=== PATIENT | male | born 1955 | race Caucasian/White ===

== ENCOUNTER 2021-08-07 16:09 | Inpatient (IN) | payer MEDICARE, SELFPAY ==
--- NOTE | ~2021-08-07 | CT_ITS ---
EXAMINATION: CT abdomen pelvis w con DATE: 08/07/2021 17:54 INDICATION: Constipation. Abdominal pain. TECHNIQUE: Computed tomography (CT) of the abdomen and pelvis was performed with 100 mL Omnipaque 350 intravenous contrast. Automated exposure control and iterative reconstruction technique were employe d. The dose-length product was 279.07 mGy-cm. COMPARISON: None. FINDINGS: The visualized portions of the lung bases demonstrates mild atelectasis. No pleural effusio n. The heart size is normal. No pericardial effusion. There are cysts in the liver measuring up to 10 mm. A calcification in the spleen is consistent with old granulomatous disease. There are a few low- attenuation lesions in the spleen measuring up to 6 mm, likely granulomatous disease. The gallbladder , pancreas, and adrenal glands are normal. There is a 3.4 x 2.8 cm mass with speckled calcifications in the left para-aortic region. There is a are cysts in right kidney measuring up to 2.3 cm. The larg est of the cysts has focal rim calcification. Left kidney is normal. There are scattered diverticula in the colon. There is a 3.1 x 2.6 x 3.0 cm intramural abscess in the sigmoid colon with local bowel wall thickening, likely diverticulitis. There are no dilated loops of bowel. The appendix is not visu alized. There are no pathologically enlarged lymph nodes. There is no free intraperitoneal fluid. The re is lumbar levoscoliosis and severe spondylosis. There are chronic bilateral L5 pars defects. There is 5 mm anterolisthesis of L5 on S1. There is mild chronic anterior wedging of T12 and L1 vertebral bodies. IMPRESSION: 1. Sigmoid diverticulitis with 3.1 x 2.6 x 3.0 cm intramural abscess. 2. 3.4 x 2.8 cm mass with calcifications in the left para-aortic region. The differential diagnosis i ncludes sarcoma, neurogenic tumor, gastrointestinal stromal tumor, and teratoma. Reviewed, dictated and finalized at location A. [employer] IMPRESSION: 1. Sigmoid diverticulitis with 3.1 x 2.6 x 3.0 cm intramural abscess. 2. 3.4 x 2.8 cm mass with calcifications in the left para-aortic region. The di fferential diagnosis includes sarcoma, neurogenic tumor, gastrointestinal malou al tumor, and teratoma.
[2021-08-07 16:27] VITALS: BP 147/84; PULSE 83; RESP 16; TEMP 36.6; O2SAT 100
[2021-08-07 16:57] LABS: Basophils Absolute Auto 0.05 K/mm3 (0.00-0.10); Basophils Percent Auto 0.3 % (0.0-1.0); Hemoglobin 13.1 g/dL (12.4-15.3); Immature Granulocyte Absolute 0.08 K/mm3 (0.00-0.00); Immature Granulocyte Percent A 0.5 % (0.0-0.0); Lymphocytes Absolute Auto 2.34 K/mm3 (1.10-4.50); Lymphocytes Percent Auto 14.7 % (18.0-42.0); Mean Corpuscular HGB Conc 34.5 g/dL (32.0-36.0); Mean Corpuscular Volume 92.7 fL (78.0-102.0); Mean Platelet Volume 9.5 fl (8.7-11.0); Monocytes Absolute Auto 1.33 K/mm3 (0.10-0.90); Monocytes Percent Auto 8.4 % (2.0-11.0); Neutrophils Absolute Auto 12.1 K/mm3 (1.7-7.2); Neutrophils Percent Auto 76.1 % (50.0-70.0); Platelet Count Result 423 K/mm3 (150-420); White Blood Count 15.9 K/mm3 (4.8-10.8)
[2021-08-07 17:08] LABS: Add Urine Microscopic? YES; Appearance Urine Clear (Clear); Bilirubin Urine 1+ (Negative); Blood Urine Negative (Negative); Color Urine Yellow (Yellow); Glucose Urine UA Negative (Negative); Ketones Urine 1+ (Negative); Leukocyte Esterase Ur Negative (Negative); Nitrate Urine Negative (Negative); Protein Urine 1+ (Negative); Urobilinogen Urine 0.2 mg/dL (0.2-1.0); pH Urine 8.5 (5.0-8.0)
[2021-08-07 17:15] LABS: Bacteria Urine Trace /hpf; Mucus Urine Moderate /lpf; RBC Urine None seen /hpf (0-2); Squamous Epithelial Cell Urine Rare /hpf (Few); WBC Urine None seen /hpf (0-3)
[2021-08-07 17:24] LABS: Alanine Aminotransferase 21 U/L (16-63); Albumin Level 3.1 g/dL (3.4-5.0); Alkaline Phosphatase 59 U/L (46-116); Anion Gap 15 mmol/L (8-16); Aspartate Amino Transferase < 10 U/L (15-37); Bilirubin,Total 0.5 mg/dL (0.00-1.00); Blood Urea Nitrogen 10 mg/dL (7-18); Calcium 9.3 mg/dL (8.5-10.1); Carbon Dioxide 23 mmol/L (21-32); Chloride 97 mmol/L (98-108); Estimated CRCL calculation 54 ml/min; Estimated Glomerular Filt Rate > 60; Glucose 145 mg/dL (70-99); Osmolality Calculated 282 mOsm/kg (285-295); Potassium 3.8 mmol/L (3.5-5.1); Sodium 135 mmol/L (136-145); Thyroid Stimulating Hormone 1.43 uIU/mL (0.36-3.74); Total Protein 7.4 g/dL (6.4-8.2)
[2021-08-07 17:35] VITALS: BP 129/76; PULSE 72; RESP 18; O2SAT 100
[2021-08-07 17:47] LABS: Lactic Acid Reflex 1.2 mmol/L (0.4-2.0)
--- NOTE | 2021-08-07 18:19 | ED.ABDPAIN ---
HPI - Abdominal Pain General Chief Complaint: Abdominal Pain Stated Complaint: blockage in bowel Source: patient Mode of arrival: ambulatory Limitations: no limitations History of Present Illness HPI narrative: this is a 65-year-old gentleman that presents with abdominal pain mainly localized to the periumbilical area has felt like needs to have a bowel movement but did have a small bowel movement earlier today currently there is no fever or chills had nausea earlier currently there is no nausea vomiting, he rates his pain at about a 6/10. Currently there is no flank pain no dysuria no hematuria no chest pain no shortness of breath. MD elicited complaint: abdominal pain Pertinent past history: constipation and diverticulitis Onset (ago): day(s) Pain Consistency: constant Location: periumbilical Severity: moderate Pain scale (0-10): 6 Quality: aching Radiation: none Migration to: periumbilical Exacerbating factors: eating and bowel movement Related Data Home Medications Medication Instructions Recorded Confirmed tramadol [Ultram] 50 mg PO PRN 08/07/21 08/07/21 Allergies Allergy/AdvReac Type Severity Reaction Status Date / Time No Known Allergies Allergy Verified 08/07/21 16:25 Review of Systems Review of Systems: All systems reviewed & are unremarkable except as noted in HPI and below [facility] Past Medical History Medical History Diverticulitis Exam Const: General: no acute distress and alert Orientation/consciousness: patient oriented x3 HENMT: Head: normal to inspection Eyes: Conjunctivae: conjunctivae normal Pupils: Equal, round and reactive pupils present Direct Ophthalmoscopy: no photophobia Neck: Neck: normal visual inspection, no lymphadenopathy and no meningeal signs Chest: Chest palpation & inspection: normal inspection of the chest Resp: Effort & Inspection: normal respiratory effort Auscultation: clear to auscultation bilaterally Cardio: Rate: regular rate Rhythm: regular rhythm GI: GI Palp: Yes Soft to palpation and Yes Tenderness to palpation present (GI) Urinary Catheter: Urinary Catheter: patent and draining Skin: General skin exam: normal color Rashes: no rashes Neuro: General: patient oriented x3 and moves all extremities Extrem: General: normal to inspection Psych: Mental Status: mental status grossly normal Affect: normal affect Course Course Emergency Course: labs and CT scan reviewed with patient CT scan shows that he has a periaortic mass that the patient is aware of, but also is having diverticulitis with some abscess formation and will start IV fluids upon admission along with IV antibiotics. Vital Signs Vital signs: Vital Signs Temperature 36.6 C 08/07/21 16:27 Pulse Rate 83 08/07/21 16:27 Respiratory Rate 16 08/07/21 16:27 Blood Pressure 147/84 H 08/07/21 16:27 Pulse Oximetry 100 08/07/21 16:27 Temperature 36.6 C 08/07/21 16:27 Pulse Rate 72 08/07/21 17:35 Respiratory Rate 18 08/07/21 17:35 Blood Pressure 129/76 08/07/21 17:35 Pulse Oximetry 100 08/07/21 17:35 MDM - Abdominal Pain Lab Data Result diagrams: 08/07/21 16:50 08/07/21 16:50 Labs: Lab Results 08/07/21 08/07/21 08/07/21 Range/Units 16:50 16:50 17:05 WBC 15.9 H (4.8-10.8) K/mm3 RBC 4.10 L (4.70-6.10) M/mm3 Hgb 13.1 (12.4-15.3) g/dL Hct 38.0 (37.0-46.0) % MCV 92.7 (78.0-102.0) fL MCH 32.0 H (27.0-31.0) pg MCHC 34.5 (32.0-36.0) g/dL RDW 12.0 (11.6-14.4) % Plt Count 423 H (150-420) K/mm3 MPV 9.5 (8.7-11.0) fl Immature Gran % (Auto) 0.5 H (0.0-0.0) % Neut % (Auto) 76.1 H (50.0-70.0) % Lymph % (Auto) 14.7 L (18.0-42.0) % [place] % (Auto) 8.4 (2.0-11.0) % Eos % (Auto) 0.0 L (1.0-6.0) % Baso % (Auto) 0.3 (0.0-1.0) % Lymph # (Auto) 2.34 (1.10-4.50) K/mm3 [place] # (Auto) 1.33 H (0.10
[2021-08-07 18:37] VITALS: BP 133/70; PULSE 80; RESP 18; TEMP 37.2; O2SAT 99
[2021-08-07 19:19] VITALS: BMI 19.4
[2021-08-07 20:00] VITALS: BP 156/88; PULSE 83; RESP 16; TEMP 37.9; O2SAT 98
[2021-08-07] MEDS: SODIUM CHLORIDE 0.9% IV 1,000 ML 100 ML IV CONT (20:06)
[2021-08-07] MEDS: CIPROFLOXACIN 400 MG/D5W 200ML 200 ML 200 MG IVPB (20:06)
--- NOTE | 2021-08-07 20:57 | ADMGEN ---
This patient, Sheldon Traore, was admitted to 2nd Floor Room 227-2. Patient for diverticulitis. Patient oriented to hospital policies and general routines including ID bracelet, bed and alarms, visiting hours, pain management, procedures, bathroom and other care routines, personal items, smoking policy, room service/diet, and visiting hours. Information on how to activate the Rapid Response Team has been discussed. Patient/Family are encouraged to report perceived risks to care and to ask questions if they do not understand what they are told or what they should do.
[2021-08-07] MEDS: DOCUSATE SODIUM 100 MG CAPSULE PO (21:50)
[2021-08-07] MEDS: metroNIDAZOLE 500 MG/ISO 100ML 500 MG/100 ML BAG 100 MG IVPB (21:50)
[2021-08-08] VITALS (8 sets, daily range): BP systolic 143–156; BP diastolic 73–90; PULSE 67–88; RESP 16–20; TEMP 36.5–37.4; O2SAT 95–100
--- NOTE | 2021-08-08 02:20 | PC.NURSE ---
Completed patient rounding. Patient is sleeping comfortably in bed, with no signs of pain or discomfort.
[2021-08-08 05:29] LABS: Basophils Absolute Auto 0.06 K/mm3 (0.00-0.10); Basophils Percent Auto 0.4 % (0.0-1.0); Eosinophils Absolute Auto 0.02 K/mm3 (0.02-0.50); Eosinophils Percent Auto 0.1 % (1.0-6.0); Hemoglobin 12.8 g/dL (12.4-15.3); Immature Granulocyte Absolute 0.07 K/mm3 (0.00-0.00); Immature Granulocyte Percent A 0.5 % (0.0-0.0); Lymphocytes Absolute Auto 1.81 K/mm3 (1.10-4.50); Lymphocytes Percent Auto 11.8 % (18.0-42.0); Mean Corpuscular HGB Conc 33.7 g/dL (32.0-36.0); Mean Corpuscular Hemoglobin 31.7 pg (27.0-31.0); Mean Corpuscular Volume 94.1 fL (78.0-102.0); Mean Platelet Volume 9.8 fl (8.7-11.0); Monocytes Absolute Auto 1.41 K/mm3 (0.10-0.90); Monocytes Percent Auto 9.2 % (2.0-11.0); Neutrophils Absolute Auto 11.9 K/mm3 (1.7-7.2); Platelet Count Result 424 K/mm3 (150-420); Red Blood Count 4.04 M/mm3 (4.70-6.10); White Blood Count 15.3 K/mm3 (4.8-10.8)
[2021-08-08 05:44] LABS: Alanine Aminotransferase 21 U/L (16-63); Alkaline Phosphatase 59 U/L (46-116); Anion Gap 13 mmol/L (8-16); Aspartate Amino Transferase < 10 U/L (15-37); Bilirubin,Total 0.4 mg/dL (0.00-1.00); Blood Urea Nitrogen 10 mg/dL (7-18); Calcium 8.6 mg/dL (8.5-10.1); Carbon Dioxide 26 mmol/L (21-32); Chloride 100 mmol/L (98-108); Estimated CRCL calculation 72 ml/min; Estimated Glomerular Filt Rate > 60; Glucose 108 mg/dL (70-99); Osmolality Calculated 288 mOsm/kg (285-295); Potassium 4.4 mmol/L (3.5-5.1); Sodium 139 mmol/L (136-145); Total Protein 6.8 g/dL (6.4-8.2)
[2021-08-08] MEDS: metroNIDAZOLE 500 MG/ISO 100ML 500 MG/100 ML BAG 100 MG IVPB (06:18)
[2021-08-08] MEDS: SODIUM CHLORIDE 0.9% IV 1,000 ML 100 ML IV CONT ×2 (08:48→21:24)
[2021-08-08] MEDS: CIPROFLOXACIN 400 MG/D5W 200ML 200 ML 200 MG IVPB (08:48)
[2021-08-08] MEDS: ENOXAPARIN 40 MG/0.4 ML SYRINGE SUB-Q (08:53)
[2021-08-08] MEDS: DOCUSATE SODIUM 100 MG CAPSULE PO ×2 (08:53→20:59)
--- NOTE | 2021-08-08 09:49 | PM.IMHP ---
H&P: HPI History of Present Illness Date/Time: 08/08/21 09:49 this is a 65-year-old male who presented to our emergency department with complaints of abdominal pain to the periumbilical area. Patient denies any past medical history. According to patient a couple days ago he started experiencing abdominal pain. He originally thought that he was constipated and used MiraLAX and Dulcolax at home. Patient notes that he still has not had a BM. Patient notes that he was unable to keep down solid food but was able to keep down liquids. Patient notes that originally his vomit was clear in color and eventually had food particles after eating. Vital signs 150/73, 88, 18, 0.3, 100% on room air, WBCs 15.3 hemoglobin 12.8, hematocrit 38.0 platelets 424, sodium 135, potassium 3.8, BUN 18, creatinine 0.93, ALT 45, lactic acid 1.2, AST less than 10, ALT 21, UA with protein ketones bili, CT of the abdomen indicates diverticulitis with a abscess in the left para- aortic region. Call to surgery department for recommendation . It was recommended that the patient be started on Zosyn with IV pain medication and remain n.p.o. with ice chips and monitored closely. If patient condition worsens I was advised to give a call back for further recommendations or possible transfer at this time transfer is not necessary. The patient denies SOB, CP, palpitation, extremity numbness, lightheadedness, dizziness, constipation, diarrhea, chills, or fever. Time spent 60 minutes <MOISES Bryson - Last Filed: 08/08/21 13:23> Chief Complaint: Abdominal pain <MOISES Bryson - Last Filed: 08/08/21 13:23> Review of Systems Review of Systems: A 14 organ system Review of Systems was performed and pertinent positives included in the HPI, otherwise remaining ROS is negative. <MOISES Bryson - Last Filed: 08/08/21 13:23> [facility] Past Medical History Medical History: Medical History Diverticulitis <MOISES Bryson - Last Filed: 08/08/21 13:23> Social History Social History: Social History Years smoked: 45 Smoking status: Current every day smoker Tobacco type: cigarettes Alcohol intake: current Drinks per week: 6 Substance use: former Substance use type: marijuana Spiritual care concerns: No <MOISES Bryson - Last Filed: 08/08/21 13:23> Meds Home Medications and Allergies Home medications: Home Medications Medication Instructions Recorded Confirmed Type tramadol [Ultram] 50 mg PO PRN 08/07/21 08/07/21 History <MOISES Bryson - Last Filed: 08/08/21 13:23> Allergies/Adverse reactions: Allergies Allergy/AdvReac Type Severity Reaction Status Date / Time No Known Allergies Allergy Verified 08/07/21 16:25 <MOISES Bryson - Last Filed: 08/08/21 13:23> Vital Signs Vital Signs - 24 hr 08/07/21 16:27 08/07/21 17:35 08/07/21 18:37 Temperature 98 F 99 F Pulse Rate 83 72 80 Respiratory Rate 16 18 18 Blood Pressure 147/84 H 129/76 133/70 Pulse Oximetry 100 100 99 08/07/21 20:00 08/08/21 00:00 08/08/21 04:00 Temperature 100.2 F H 99.1 F 98.1 F Pulse Rate 83 77 76 Respiratory Rate 16 18 16 Blood Pressure 156/88 H 143/88 H 154/83 H Pulse Oximetry 98 95 97 08/08/21 08:00 Temperature 98.3 F Pulse Rate 88 Respiratory Rate 18 Blood Pressure 150/73 H Pulse Oximetry 100 <MOISES Bryson - Last Filed: 08/08/21 13:23> Exam Narrative: GENERAL: This is a well-nourished, well-developed patient, in no apparent distress. HEAD: normocephalic, atraumatic. EYES: PERRL. Sclera clear/white. Vision is grossly intact. EARS: External ears normal, auditory canals clear and without drainage, TMs normal without perforation. Hearing grossly intact. NOSE: External nose normal with no obvious nasal discharge, nares without redness,
--- NOTE | 2021-08-08 13:51 | PC.NURSE ---
0900 small clear mucus like with flecks of brown dk stool. 1050 sm amt soft formed dk brown green stool
--- NOTE | 2021-08-08 18:59 | PC.NURSE ---
Pt nurse introduction took place. Pt whiteboard updated. Pt stated pain is managed at this time.
--- NOTE | 2021-08-09 02:11 | PC.NURSE ---
Pt rounding completed. Pt is sleeping on his left side with the call light within reach.
[2021-08-09 04:00] VITALS: BP 146/84; PULSE 73; RESP 19; TEMP 36.5; O2SAT 98
[2021-08-09 05:23] LABS: Hematocrit 35.2 % (37.0-46.0); Hemoglobin 11.9 g/dL (12.4-15.3); Mean Corpuscular HGB Conc 33.8 g/dL (32.0-36.0); Mean Corpuscular Hemoglobin 31.7 pg (27.0-31.0); Mean Corpuscular Volume 93.9 fL (78.0-102.0); Platelet Count Result 406 K/mm3 (150-420); Red Blood Count 3.75 M/mm3 (4.70-6.10); Red Cell Distribution Width 11.9 % (11.6-14.4)
[2021-08-09 05:40] LABS: Alanine Aminotransferase 18 U/L (16-63); Albumin Level 2.6 g/dL (3.4-5.0); Alkaline Phosphatase 52 U/L (46-116); Anion Gap 12 mmol/L (8-16); Aspartate Amino Transferase < 10 U/L (15-37); Bilirubin,Total 0.4 mg/dL (0.00-1.00); Blood Urea Nitrogen 7 mg/dL (7-18); Calcium 8.2 mg/dL (8.5-10.1); Carbon Dioxide 23 mmol/L (21-32); Chloride 101 mmol/L (98-108); Estimated CRCL calculation 79 ml/min; Estimated Glomerular Filt Rate > 60; Glucose 93 mg/dL (70-99); Osmolality Calculated 280 mOsm/kg (285-295); Potassium 3.3 mmol/L (3.5-5.1); Sodium 136 mmol/L (136-145); Total Protein 6.6 g/dL (6.4-8.2)
[2021-08-09 05:43] LABS: CRP 14.9 mg/dL (0.0-0.9)
[2021-08-09 08:00] VITALS: BP 145/77; PULSE 63; RESP 20; TEMP 36.6; O2SAT 97
[2021-08-09] MEDS: ENOXAPARIN 40 MG/0.4 ML SYRINGE SUB-Q (08:44)
[2021-08-09] MEDS: DOCUSATE SODIUM 100 MG CAPSULE PO (08:44)
[2021-08-09] MEDS: SODIUM CHLORIDE 0.9% IV 1,000 ML 100 ML IV CONT ×2 (08:44→20:23)
--- NOTE | 2021-08-09 08:52 | WPDPN ---
Progress Note: A&P Assessment and Plan (1) Diverticulitis: Code(s): K57.92 - Diverticulitis of intestine, part unspecified, without perforation or abscess without bleeding Status: Acute Assessment and Plan: Imaging indicates Sigmoid diverticulitis with 3.1 x 2.6 x 3.0 cm intramural abscess. Continue Zosyn with pain medication Advance diet to clear liquid diet WBCs 15>12 CMP in a.m. Lactic acid within normal limits (2) Elevated WBCs: Code(s): D72.829 - Elevated white blood cell count, unspecified Status: Acute Assessment and Plan: Trending down 15>12 Possibly secondary to diverticulitis or intramural abscess Continue Zosyn (3) Nausea and vomiting: Code(s): R11.2 - Nausea with vomiting, unspecified Status: Acute Assessment and Plan: Resolved Continue Zofran Advance diet as tolerated (4) Constipation: Code(s): K59.00 - Constipation, unspecified Status: Acute Assessment and Plan: Resolved (5) Intestinal abscess: Code(s): K63.0 - Abscess of intestine Status: Acute Assessment and Plan: Imaging indicates Sigmoid diverticulitis with 3.1 x 2.6 x 3.0 cm intramural abscess. Started Zosyn with pain medication Remain n.p.o. with ice chips WBCs 15>12 CMP in a.m. Lactic acid within normal limits (6) Mass of aorta: Code(s): I77.89 - Other specified disorders of arteries and arterioles Status: Acute Assessment and Plan: Patient aware monitored by primary care physician Subjective Date/time seen: 08/09/21 08:52 patient notes that his pain has decreased he still continues to have tenderness in his left lower quadrant. He also notes that he is not having bowel movements. Patient was able to tolerate ice chips will advance his diet to clear liquid diet. The patient denies SOB, CP, palpitation, extremity numbness, lightheadedness, dizziness, constipation, diarrhea, chills, or fever. Patient will remain for an additional day and possible discharge tomorrow. Review of Systems Review of Systems: A 14 organ system Review of Systems was performed and pertinent positives included in the HPI, otherwise remaining ROS is negative. Exam Narrative: GENERAL: This is a well-nourished, well-developed patient, in no apparent distress. HEAD: normocephalic, atraumatic. EYES: PERRL. Sclera clear/white. Vision is grossly intact. EARS: External ears normal, auditory canals clear and without drainage, TMs normal without perforation. Hearing grossly intact. NOSE: External nose normal with no obvious nasal discharge, nares without redness, no rhinorrhea. THROAT: Mucous membranes moist, posterior pharynx clear. NECK: Neck supple, non-tender without lymphadenopathy, masses or thyromegaly. CARDIOVASCULAR: Regular rate and rhythm without murmurs, gallops, or rubs. RESPIRATORY: Clear to auscultation. Breath sounds equal bilaterally. No wheezes, rales, or rhonchi. GASTROINTESTINAL: Abdomen soft, tender to the lower right quadrant, nondistended. Bowel sounds hyperactive. No hepato-splenomegaly, or palpable masses. No guarding. SKIN: warm, intact with no suspicious lesions or rash, good texture and turgor. NEURO: awake, alert, and oriented to person, place and time. There were no obvious focal neurologic abnormalities. Steady gait EXTREMITIES: Normal range of motion. No edema. No calf tenderness. Negative Homans sign bilaterally. BACK: Nontender without deformity or crepitance. No flank tenderness. Objective Data Vital Signs Vital Signs: Vital Signs - 24 hr 08/08/21 12:00 08/08/21 13:37 08/08/21 16:00 Temperature 99.4 F 99.4 F 98.5 F Pulse Rate 69 Respiratory Rate 20 Blood Pressure 150/81 H Pulse Oximetry 96 08/08/21 20:00 08/08/21 23:50 08/09/21 04:00 Temperature 98.3 F 97.7 F 97.7 F Pulse Rate 67 76 73 Respiratory Rate 16 18 19 Blood Pressure 156/90 H 152/88 H 146/84 H Pulse Oximetry 95 98 98 Inta
[2021-08-09] MEDS: KCL 20 MEQ/SW 100 ML 100 ML 50 MEQ IVPB (10:24)
[2021-08-09 16:00] VITALS: BP 152/77; PULSE 68; RESP 18; TEMP 36.8; O2SAT 99
[2021-08-09 23:38] VITALS: BP 150/80; PULSE 63; RESP 17; TEMP 36.8; O2SAT 98
--- NOTE | 2021-08-10 01:28 | PC.NURSE ---
Pt is laying on his right side. Education was provided on how the IV equipment worked per pt curiosity. Pt is in pleasant mood and has his call light within reach.
--- NOTE | 2021-08-10 03:23 | PC.NURSE ---
Pt is sleeping on his right side with call light within reach.
[2021-08-10 06:19] LABS: Hematocrit 37.6 % (37.0-46.0); Hemoglobin 12.8 g/dL (12.4-15.3); Mean Corpuscular Hemoglobin 31.8 pg (27.0-31.0); Mean Corpuscular Volume 93.5 fL (78.0-102.0); Mean Platelet Volume 9.5 fl (8.7-11.0); Platelet Count Result 438 K/mm3 (150-420); Red Blood Count 4.02 M/mm3 (4.70-6.10); Red Cell Distribution Width 11.9 % (11.6-14.4); White Blood Count 6.4 K/mm3 (4.8-10.8)
[2021-08-10 06:48] LABS: Alanine Aminotransferase 19 U/L (16-63); Albumin Level 2.6 g/dL (3.4-5.0); Alkaline Phosphatase 46 U/L (46-116); Anion Gap 9 mmol/L (8-16); Aspartate Amino Transferase < 10 U/L (15-37); Bilirubin,Total 0.2 mg/dL (0.00-1.00); Blood Urea Nitrogen 4 mg/dL (7-18); CRP 9.6 mg/dL (0.0-0.9); Calcium 8.7 mg/dL (8.5-10.1); Carbon Dioxide 25 mmol/L (21-32); Chloride 103 mmol/L (98-108); Estimated CRCL calculation 75 ml/min; Estimated Glomerular Filt Rate > 60; Glucose 92 mg/dL (70-99); Osmolality Calculated 280 mOsm/kg (285-295); Potassium 3.5 mmol/L (3.5-5.1); Sodium 137 mmol/L (136-145); Total Protein 6.6 g/dL (6.4-8.2)
[2021-08-10] MEDS: ENOXAPARIN 40 MG/0.4 ML SYRINGE SUB-Q (07:52)
[2021-08-10 08:00] VITALS: BP 146/86; PULSE 61; RESP 17; TEMP 36.6; O2SAT 98
--- NOTE | 2021-08-10 11:10 | P.DS_ITS ---
DS: Admitting Diagnosis Discharge Date 08/10/2021 <Phyllis KaydenMOISES Stewart - Last Filed: 08/10/21 15:35> Admitting Diagnosis Diverticulitis with abscess <MOISES Bryson - Last Filed: 08/10/21 15:35> DS: Discharge Diagnosis Discharge Diagnosis (1) Diverticulitis: Code(s): K57.92 - Diverticulitis of intestine, part unspecified, without perforation or abscess without bleeding <MOISES Bryson - Last Filed: 08/10/21 15:35> Status: Acute <Phyllis KaydenMOISES Stewart - Last Filed: 08/10/21 15:35> Assessment and Plan: * Imaging indicates Sigmoid diverticulitis with 3.1 x 2.6 x 3.0 cm intramural abscess. * Continue Zosyn with pain medication * Advance diet to clear liquid diet * WBCs 15>12>6.4 * Lactic acid within normal limits patient able to tolerate all meals * <MOISES Bryson - Last Filed: 08/10/21 15:35> (2) Elevated WBCs: Code(s): D72.829 - Elevated white blood cell count, unspecified <MOISES Bryson - Last Filed: 08/10/21 15:35> Status: Acute <Phyllis KaydenMOISES Stewart - Last Filed: 08/10/21 15:35> Assessment and Plan: * Trending down 15>12>6.4 * Possibly secondary to diverticulitis or intramural abscess * Home with Augmentin <MOISES Bryson - Last Filed: 08/10/21 15:35> (3) Nausea and vomiting: Code(s): R11.2 - Nausea with vomiting, unspecified <MOISES Bryson - Last Filed: 08/10/21 15:35> Status: Acute <Phyllis KaydenMOISES Stewart - Last Filed: 08/10/21 15:35> Assessment and Plan: * Resolved * Continue Zofran * Able to tolerate meals <MOISES Bryson - Last Filed: 08/10/21 15:35> (4) Constipation: Code(s): K59.00 - Constipation, unspecified <MOISES Bryson - Last Filed: 08/10/21 15:35> Status: Acute <MOISES Bryson - Last Filed: 08/10/21 15:35> Assessment and Plan: * Resolved <MOISES Bryson - Last Filed: 08/10/21 15:35> (5) Intestinal abscess: Code(s): K63.0 - Abscess of intestine <MOISES Bryson - Last Filed: 08/10/21 15:35> Status: Acute <MOISES Bryson - Last Filed: 08/10/21 15:35> Assessment and Plan: * Imaging indicates Sigmoid diverticulitis with 3.1 x 2.6 x 3.0 cm intramural abscess. * Zosyn as inpatient Augmentin outpatient p.o. * Remain n.p.o. with ice chips * WBCs 15>12>6.4 * Lactic acid within normal limits <MOISES Bryson - Last Filed: 08/10/21 15:35> (6) Mass of aorta: Code(s): I77.89 - Other specified disorders of arteries and arterioles <MOISES Bryson - Last Filed: 08/10/21 15:35> Status: Acute <MOISES Bryson - Last Filed: 08/10/21 15:35> Assessment and Plan: * Patient aware monitored by primary care physician <MOISES Bryson - Last Filed: 08/10/21 15:35> DS: Summary Hospital Course Reason for hospitalization: Abdominal pain <Phyllis Mcgee MOISES - Last Filed: 08/10/21 15:35> Hospital Course: this is a 65-year-old male who presented to our emergency department with complaints of abdominal pain to the periumbilical area. Patient denies any past medical history. According to patient a couple days ago he started experiencing abdominal pain. He originally thought that he was constipated and used MiraLAX and Dulcolax at home. . Patient notes that he was unable to keep down solid food but was able to keep down liquids. Patient notes that originally his vomit was clear in color and eventually had fo
--- NOTE | 2021-08-10 11:10 | PM.DS ---
DS: Admitting Diagnosis Discharge Date 08/10/2021 <MOISES Bryson - Last Filed: 08/10/21 15:35> Admitting Diagnosis Diverticulitis with abscess <MOISES Bryson - Last Filed: 08/10/21 15:35> DS: Discharge Diagnosis Discharge Diagnosis (1) Diverticulitis: Code(s): K57.92 - Diverticulitis of intestine, part unspecified, without perforation or abscess without bleeding <MOISES Bryson - Last Filed: 08/10/21 15:35> Status: Acute <MOISES Bryson - Last Filed: 08/10/21 15:35> Assessment and Plan: Imaging indicates Sigmoid diverticulitis with 3.1 x 2.6 x 3.0 cm intramural abscess. Continue Zosyn with pain medication Advance diet to clear liquid diet WBCs 15>12>6.4 Lactic acid within normal limits patient able to tolerate all meals <MOISES Bryson - Last Filed: 08/10/21 15:35> (2) Elevated WBCs: Code(s): D72.829 - Elevated white blood cell count, unspecified <MOISES Bryson - Last Filed: 08/10/21 15:35> Status: Acute <MOISES Bryson - Last Filed: 08/10/21 15:35> Assessment and Plan: Trending down 15>12>6.4 Possibly secondary to diverticulitis or intramural abscess Home with Augmentin <MOISES Bryson - Last Filed: 08/10/21 15:35> (3) Nausea and vomiting: Code(s): R11.2 - Nausea with vomiting, unspecified <MOISES Bryson - Last Filed: 08/10/21 15:35> Status: Acute <MOISES Bryson - Last Filed: 08/10/21 15:35> Assessment and Plan: Resolved Continue Zofran Able to tolerate meals <MOISES Bryson - Last Filed: 08/10/21 15:35> (4) Constipation: Code(s): K59.00 - Constipation, unspecified <MOISES Bryson - Last Filed: 08/10/21 15:35> Status: Acute <MOISES Bryson - Last Filed: 08/10/21 15:35> Assessment and Plan: Resolved <MOISES Bryson - Last Filed: 08/10/21 15:35> (5) Intestinal abscess: Code(s): K63.0 - Abscess of intestine <MOISES Bryson - Last Filed: 08/10/21 15:35> Status: Acute <MOISES Bryson - Last Filed: 08/10/21 15:35> Assessment and Plan: Imaging indicates Sigmoid diverticulitis with 3.1 x 2.6 x 3.0 cm intramural abscess. Zosyn as inpatient Augmentin outpatient p.o. Remain n.p.o. with ice chips WBCs 15>12>6.4 Lactic acid within normal limits <MOISES Bryson - Last Filed: 08/10/21 15:35> (6) Mass of aorta: Code(s): I77.89 - Other specified disorders of arteries and arterioles <MOISES Bryson - Last Filed: 08/10/21 15:35> Status: Acute <MOISES Bryson Last Filed: 08/10/21 15:35> Assessment and Plan: Patient aware monitored by primary care physician <MOISES Bryson - Last Filed: 08/10/21 15:35> DS: Summary Hospital Course Reason for hospitalization: Abdominal pain <MOISES Bryson - Last Filed: 08/10/21 15:35> Hospital Course: this is a 65-year-old male who presented to our emergency department with complaints of abdominal pain to the periumbilical area. Patient denies any past medical history. According to patient a couple days ago he started experiencing abdominal pain. He originally thought that he was constipated and used MiraLAX and Dulcolax at home. . Patient notes that he was unable to keep down solid food but was able to keep down liquids. Patient notes that originally his vomit was clear in color and eventually had food particles after eating. This day of discharge patient was able to tolerate his meals and notes that his abdominal pain has resolved. Patient will discharge with Augmentin and pain medication he was also instructed to be cautious of pain medication because it may cause constipation. The patient denies SOB, CP, palpitation, extremity numbness, li
--- NOTE | 2021-08-10 15:15 | PC.NURSE ---
Discharge instructions reviewed with patient. All questions answered. Pt escorted to front lobby for discharge.
--- NOTE | 2021-08-12 10:42 | PC.NURSE ---
Unable to contact for discharge call back.
== END 2021-08-10 13:50 | disposition home or self-care (01) | DRG 392 ==
LOC: CHSED 18:25 → CHS2ND 18:53
PROVIDERS: Nurse Practitioner; Admitting Provider Emergency Medicine; Emergency Provider Emergency Medicine; PCP Family Medicine; Visit Provider Emergency Medicine
DX: K57.32 Diverticulitis of large intestine without perforation or abscess without bleeding (principal); R22.2 Localized swelling, mass and lump, trunk; K57.20 Diverticulitis of large intestine with perforation and abscess without bleeding; F17.210 Nicotine dependence, cigarettes, uncomplicated
CPT/HCPCS: 36415; 74177; 80053; 81001; 83605; 83735; 84443; 85025; 85027; 86140; 87040; 99285; A9270; J0744; J1650; J1741; J2543; J3480; J7030; J7050; Q9967